=== PATIENT | male | born 1975 | race Caucasian/White ===

== ENCOUNTER 2020-08-16 15:00 | Outpatient (RCR) | payer OTHER | END 2020-08-31 | LOC: OT 15:00 | PROVIDERS: ATTEND Specialist | DX: M77.8 Other enthesopathies, not elsewhere classified (principal) ==

== ENCOUNTER 2023-10-30 13:47 | Outpatient (RCR) | payer OTHER | END 2023-11-02 | LOC: OT 13:47 | PROVIDERS: ATTEND Physician Assistant | DX: S46.312A Strain of muscle, fascia and tendon of triceps, left arm, initial encounter (principal) ==

== ENCOUNTER 2023-11-27 11:00 | Outpatient (RCR) | payer OTHER | END 2023-12-02 | LOC: OT 11:00 | PROVIDERS: ATTEND Physician Assistant | DX: S46.312A Strain of muscle, fascia and tendon of triceps, left arm, initial encounter (principal) ==